=== PATIENT | female | born 1965 | race Caucasian/White ===

== ENCOUNTER 2016-10-29 11:06 | Emergency (ER) | payer OTHER ==
[~2016-10-29] VITALS: Ht 172.7 cm; Wt 59.0 kg
[2016-10-29 11:06] VITALS: BP 110/71; PULSE 74; RESP 16; TEMP 97.7; O2SAT 98
[~2016-10-29 11:06] MED LIST: IBUP-232 PO; METH750T PO; SPIR50TA PO; TRAM50TA PO
--- NOTE | 2016-10-29 11:14 | PD ---
HPI Chief Complaint: Chest pain Time Seen by Provider: 11:13 Travel History International Travel<30 days: No Contact w/Intl Traveler<30days: No History of Present Illness HPI Patient is a 51-year-old female presents emergency Department with chest pain this morning. Patient states that last night she had nausea without vomiting and some epigastric discomfort. She states this morning she began having some sharp pain in her chest radiating towards her back. She is also states she's had some shortness of breath knee pain with diarrhea headache. She states that her father had his first heart attack when he was her age, she is fairly healthy , no high blood pressure no high cholesterol no diabetes no heart disease in herself. She states her pain was severe earlier but is now starting to avi itself. Is highly positional and states worsened when she itself forward. She states the pain is also radiating somewhat in between her shoulder blades and up into her neck. Patient's father arrives and apparently patient took 3 hour car ride yesterday. No history of blood clots, no cancer history. PFSH Past Medical History Narrative Medical Heart murmur, Diminished Hearing: No Integumentary: Yes (ACNE ) Past Surgical History Narrative Surgical Right knee surgery. Tonsillectomy: Yes Other Surgery: Yes (2 LUMPECTOMY RT BREAST/ BREAST AUGMENTATION) Social History Alcohol Use: Yes (RARELY) Tobacco Use: No Substance Use: No Allergies-Medications (Allergen,Severity, Reaction): Coded Allergies: Morphine (Verified Allergy, Intermediate, HIVES, 10/29/16) Codeine (Verified Adverse Reaction, Unknown, VOMITING, 10/29/16) Reported Meds & Prescriptions Reported Meds & Active Scripts Active Flexeril (Cyclobenzaprine HCl) 10 Mg Tab 10 Mg PO TID Reported Spironolactone 50 Mg Tab 50 Mg PO DAILY Review of Systems Except as stated in HPI: all other systems reviewed are Neg Physical Exam Narrative GENERAL: Well-developed, healthy physique in mild discomfort. She grimaces when she sits forward for auscultation of breath sounds. SKIN: Focused skin assessment warm/dry. HEAD: Atraumatic. Normocephalic. EYES: Pupils equal and round. No scleral icterus. No injection or drainage. ENT: No nasal bleeding or discharge. Mucous membranes pink and moist. NECK: Trachea midline. No JVD. CARDIOVASCULAR: Regular rate and rhythm. No murmur appreciated. 2+ bilateral equal pulses in all 4 extremities. RESPIRATORY: No accessory muscle use. Clear to auscultation. Breath sounds equal bilaterally. GASTROINTESTINAL: Abdomen soft, non-tender, nondistended. Hepatic and splenic margins not palpable. MUSCULOSKELETAL: No obvious deformities. No clubbing. No cyanosis. No edema. NEUROLOGICAL: Awake and alert. No obvious cranial nerve deficits. Motor grossly within normal limits. Normal speech. PSYCHIATRIC: Appropriate mood and affect; insight and judgment normal. Data Data Last Documented VS Vital Signs Date Time Temp Pulse Resp B/P Pulse Ox O2 Delivery O2 Flow Rate FiO2 10/29/16 13:10 69 16 96/59 99 10/29/16 12:40 Room Air 10/29/16 11:06 97.7 Orders Electrocardiogram (10/29/16 11:13) Ckmb (Isoenzyme) Profile (10/29/16 11:13) Complete Blood Count With Diff (10/29/16 11:13) Comprehensive Metabolic Panel (10/29/16 11:13) Magnesium (Mg) (10/29/16 11:13) Prothrombin Time / Inr (Pt) (10/29/16 11:13) Act Partial Throm Time (Ptt) (10/29/16 11:13) Troponin I (10/29/16 11:13) Lipase (10/29/16 11:13) Chest, Single Ap (10/29/16 11:13) Ecg Monitoring (10/29/16 11:13) Iv Access Insert/Monitor (10/29/16 11:13) Oximetry (10/29/16 11:13) Oxygen Administration (10/29/16 11:13) Aspirin Chew (Aspirin Chew) (10/29/16 11:15) Sodium Chloride 0.9% Flush (Ns Flush) (10/29/16 11:15) Ondansetron Inj (Zofran Inj) (10/29/16 11:15) Al-Mag Hy-Si 40-40-4 Mg/Ml Liq (Mag-Al P (10/29/16 11:15) Lidocaine 2% Viscous (Xylocaine 2% Visco (10/29/16 11:15) Acetaminophen (Tylenol) (10/29/16 12:00) Nitroglycerin Sl (Nitrostat Sl) (10/29/16 12:15) Ct Pulmonary Angiogram (10/29/16 ) Iohexol 350 Inj (Omnipaque 350 Inj) (10/29/16 13:00) Labs Laboratory Tests Test 10/29/16 11:15 White Blood Count 6.3 TH/MM3 Red Blood Count 4.58 MIL/MM3 Hemoglobin 14.1 GM/DL Hematocrit 42.7 % Mean Corpuscular Volume 93.2 FL Mean Corpuscular Hemoglobin 30.8 PG Mean Corpuscular Hemoglobin 33.0 % Concent Red Cell Distribution Width 11.4 % Platelet Count 192 TH/MM3 Mean Platelet Volume 8.0 FL Neutrophils (%) (Auto) 72.2 % Lymphocytes (%) (Auto) 18.0 % Monocytes (%) (Auto) 7.9 % Eosinophils (%) (Auto) 1.1 % Basophils (%) (Auto) 0.8 % Neutrophils # (Auto) 4.5 TH/MM3 Lymphocytes # (Auto) 1.1 TH/MM3 Monocytes # (Auto) 0.5 TH/MM3 Eosinophils # (Auto) 0.1 TH/MM3 Basophils # (Auto) 0.1 TH/MM3 CBC Comment DIFF FINAL Differential Comment Prothrombin Time 10.2 SEC Prothromb Time International 0.9 RATIO Ratio Activated Partial 29.5 SEC Thromboplast Time Sodium Level 138 MEQ/L Potassium Level 3.9 MEQ/L Chloride Level 104 MEQ/L Carbon Dioxide Level 24.2 MEQ/L Anion Gap 10 MEQ/L Blood Urea Nitrogen 20 MG/DL Creatinine 0.85 MG/DL Estimat Glomerular Filtration 71 ML/MIN Rate Random Glucose 87 MG/DL Calcium Level 9.1 MG/DL Magnesium Level 2.2 MG/DL Total Bilirubin 0.8 MG/DL Aspartate Amino Transf 18 U/L (AST/SGOT) Alanine Aminotransferase 17 U/L (ALT/SGPT) Alkaline Phosphatase 58 U/L Total Creatine Kinase 42 U/L Troponin I LESS THAN 0.02 NG/ML Total Protein 7.3 GM/DL Albumin 4.0 GM/DL Lipase 150 U/L [facility] Medical Decision Making Medical Screen Exam Complete: Yes Emergency Medical Condition: Yes Interpretation(s) EKG shows sinus rhythm with normal axis and normal R-wave progression. [place] interval of 107 otherwise intervals within normal limits. No concerning ST segment changes. Nonspecific RSR prime pattern in V1. The borderline EKG. Differential Diagnosis ACS, AMI, GERD, muscular strain, PE seems highly unlikely, dissection also seems highly unlikely, GERD, biliary colic, pancreatitis. Narrative Course Patient roomed emergency department, initial workup negative, EKG troponin CBC CMP lipase all within normal limits. After the patient's father arrived and stated patient had a history of car ride he needs stronger consideration the patient was placed in the CAT scanner, no obvious signs of PE, no esophageal foreign body seen, the patient is able tolerate by mouth liquids in the emergency department, she had very little relief with GI cocktail and no relief with nitroglycerin. She states that her symptoms have somewhat abated on their own. She would like to go home to follow up with her primary care physician. I discussed that I think she is highly atypical for ACS but she was offered observation status for consideration of stress test and she declines this time. Discussed symptomatic management at home and returned ED criteria. My opinion of hers that given her highly positional nature and there is some component of anxiety as well. Diagnosis Primary Impression: Chest pain Additional Impression: Back pain Additional Instructions: Drink plenty of fluids, follow-up with your primary care physician. If your pain worsens or use start running fevers please return emergency department. We would be happy to see you at any time for any concerns. Med/Other Pt SpecificInfo: Prescription(s) given Scripts Cyclobenzaprine (Flexeril)10 Mg Tab10 Mg PO TID #20 TAB Ref 0 Prov:Tee White MD 10/29/16 Disposition: 01 DISCHARGE HOME Condition: Stable Tee White MD Oct 29, 2016 11:14
[2016-10-29] MEDS ORDERED: ASPIRIN 81 MG CHEW TAB PO ONE (11:15)
[2016-10-29] MEDS ORDERED: SODIUM CHLORIDE 0.9% FLUSH 10 ML FLUSH IVF PRN (11:15)
[2016-10-29] MEDS ORDERED: ALUMINUM/MAGNESIUM/SIMETH 30 ML CUP PO ONE (11:15)
[2016-10-29] MEDS ORDERED: ONDANSETRON HCL 4 MG/2 ML VIAL IVP ONE (11:15)
[2016-10-29] MEDS ORDERED: LIDOCAINE VISCOUS 2% SOLN 15 ML UDC PO ONE (11:15)
[2016-10-29 11:33] LABS: AUTOMATED NEUTROPHIL # 4.5 TH/MM3 (1.8-7.7); BASOPHIL # 0.1 TH/MM3 (0-0.2); BASOPHIL % 0.8 % (0.0-2.0); EOSINOPHIL # 0.1 TH/MM3 (0-0.4); EOSINOPHIL % 1.1 % (0.0-4.0); HEMATOCRIT 42.7 % (35.0-46.0); HEMO FLAGS DIFF FINAL; LYMPHOCYTE # 1.1 TH/MM3 (1.0-4.8); MEAN CELL VOLUME 93.2 FL (80.0-100.0); MEAN CORPUSCULAR HEMOGLOBIN 30.8 PG (27.0-34.0); MONO % 7.9 % (0.0-8.0); NEUT % 72.2 % (16.0-70.0); PLATELET COUNT 192 TH/MM3 (150-450); RED BLOOD COUNT 4.58 MIL/MM3 (4.00-5.30); RED CELL DISTRIBUTION WIDTH 11.4 % (11.6-17.2); WHITE BLOOD COUNT 6.3 TH/MM3 (4.0-11.0)
[2016-10-29 11:42] LABS: CHLORIDE 104 MEQ/L (98-107); POTASSIUM 3.9 MEQ/L (3.5-5.1); SODIUM (NA) 138 MEQ/L (136-145)
[2016-10-29 11:46] LABS: ANION GAP 10 MEQ/L (5-15); APTT (PATIENT) 29.5 SEC (24.3-30.1); BICARBONATE 24.2 MEQ/L (21.0-32.0); BLOOD UREA NITROGEN 20 MG/DL (7-18); INTERNATIONAL NORMALIZED RATIO 0.9 RATIO; MAGNESIUM 2.2 MG/DL (1.5-2.5); PROTHROMBIN TIME - PATIENT 10.2 SEC (9.8-11.6)
[2016-10-29 11:49] LABS: ALT (GPT) 17 U/L (10-53); AST (GOT) 18 U/L (15-37); GLOMERULAR FILTRATION RATE 71 ML/MIN (>89)
[2016-10-29 11:50] LABS: TOTAL BILIRUBIN ADULT 0.8 MG/DL (0.2-1.0)
[2016-10-29 11:51] LABS: ALKALINE PHOSPHATASE 58 U/L (45-117)
[2016-10-29 11:58] LABS: CREATINE KINASE 42 U/L (26-192)
[2016-10-29] MEDS ORDERED: ACETAMINOPHEN 500 MG CPLT PO ONE (12:00)
--- NOTE | 2016-10-29 12:00 | RADRPT ---
EXAM DATE/TIME: 10/29/2016 11:31 [facility] COMPARISON: No previous studies available for comparison. INDICATIONS : Chest pains today MEDICAL HISTORY : None. SURGICAL HISTORY : lumpectomy ENCOUNTER: Initial ACUITY: 1 day PAIN SCORE: 4/10 LOCATION: Bilateral chest FINDINGS: A single view of the chest demonstrates the lungs to be symmetrically aerated without evidence of mas s, infiltrate or effusion. The cardiomediastinal contours are unremarkable. Osseous structures are intact. CONCLUSION: No acute disease. Jamal Mendez MD on October 29, 2016 at 11:58 Board Certified Radiologist. This report was verified electronically.
[2016-10-29 12:11] VITALS: RESP 19; O2SAT 97
[2016-10-29] MEDS ORDERED: NITROGLYCERIN 0.4 MG SL 25 TABS/BTL SL ONE (12:15)
[2016-10-29 12:40] VITALS: BP 101/65; PULSE 57; RESP 16; O2SAT 97
[2016-10-29] MEDS ORDERED: IOHEXOL 350 MG/ML 10 ML VIAL (for RAD DIAG) IV ONE (13:00)
[2016-10-29 13:10] VITALS: BP 96/59; PULSE 69; RESP 16; O2SAT 99
--- NOTE | 2016-10-29 13:27 | RADRPT ---
EXAM DATE/TIME: 10/29/2016 12:49 [facility] COMPARISON: No previous studies available for comparison. INDICATIONS : Chest pain, nausea, Shortness of breath. IV CONTRAST: 74 cc Omnipaque 350 (iohexol) IV RADIATION DOSE: 9.56 CTDIvol (mGy) MEDICAL HISTORY : Carcinoma, breast. Right lumpectomy, [place]. SURGICAL HISTORY : Knee surgery ENCOUNTER: Initial ACUITY: 2 days PAIN SCALE: 4/10 LOCATION: Bilateral chest TECHNIQUE: Volumetric scanning of the chest was performed using a pulmonary embolism protocol MIP images were re constructed. Using automated exposure control and adjustment of the mA and/or kV according to patien t size, radiation dose was kept as low as reasonably achievable to obtain optimal diagnostic quality images. DICOM format image data is available electronically for review and comparison. Follow-up recommendations for incidentally detected pulmonary nodules are based at a minimum on nodul e size and patient risk factors according to Fleischner Society Guidelines. FINDINGS: The lungs are clear without infiltrate, nodule, or mass. There is no pleural effusion. No appreciab le pathological adenopathy is seen within the mediastinum. Incidental note is made of a tiny 7 mm cys t in the liver. There are blebs in the right lung. There is no evidence for PE for technique. CONCLUSION: There is no evidence for PE for technique. Jerilyn Bear MD on October 29, 2016 at 13:23 Board Certified Radiologist. This report was verified electronically.
[2016-10-29] MEDS ORDERED: CYCL1TAB29 PO (13:47)
--- NOTE | 2016-10-30 12:43 | EKG ---
Date Performed: 10/29/2016 Time Performed: 11:24:27 PTAGE: 51 years EKG: Sinus rhythm WITH SHORT GA INTERVAL POSSIBLE RIGHT VENTRICULAR CONDUCTION DELAY BORDERLINE ECG NO PREVIOUS TRACING DOCTOR: Yang Wood Interpretating Date/Time 10/30/2016 12:35:33
== END 2016-10-29 14:05 | disposition home or self-care (01) ==
LOC: PHED 11:06
DX: R07.9 Chest pain, unspecified (principal); R06.02 Shortness of breath; R51 Headache; Z79.899 Other long term (current) drug therapy
CPT/HCPCS: 71010; 71275; 80053; 82550; 83690; 83735; 84484; 85025; 85610; 85730; 93005; 96374; 99285; J2405; Q9967